=== PATIENT | male | born 1970 | race Caucasian/White ===

== ENCOUNTER 2017-03-02 01:17 | Emergency (ER) | payer SELFPAY ==
[2017-03-02] MEDS ORDERED: ONDANSETRON 4 MG/2 ML VIAL IVP ONE (02:04)
[2017-03-02] MEDS ORDERED: NS 1,000 ML IV ONE ×2 (02:04)
--- NOTE | 2017-03-02 02:04 | EDPHY ---
H & P Stated Complaint: SANCHEZ 6 GUMMIES TONIGHT SINCE 9 P.M. AND ETOH NO N,V, HPI/ROS: HPI CHIEF COMPLAINT: "I feel very strange, I think I am dying after eating edible marijuana" HISTORY OF PRESENT ILLNESS: This patient very pleasant 46-year-old male he is visiting [facility] from [facility], he presents to the emergency room with nausea, feeling lightheaded feeling very bad after consuming 6-10 mg gummy warms of edible marijuana and for alcoholic beverages. The patient tells me around 10:00 p.m. he ate 6 coming worms. Around 11:00 p.m. he started feeling lightheaded and not well. Has nausea. Denies chest pain or shortness of breath. He is paranoid. Denies chest pain. Past Medical History: Hypertension, hyperlipidemia Past Surgical History: No surgical history Social History: Occasional alcohol use, denies illicit drugs tobacco, ingested edible marijuana this evening. Family History: Noncontributory ROS REVIEW OF SYSTEMS: A comprehensive 10 point review of systems is otherwise negative aside from elements mentioned in the history of present illness. Exam Constitutional appears well nontoxic triage nursing summary reviewed, vital signs reviewed, awake/alert. Eyes normal conjunctivae and sclera, EOMI, PERRLA. HENT normal inspection, atraumatic, moist mucus membranes, no epistaxis, neck supple/ no meningismus, no raccoon eyes. Respiratory clear to auscultation bilaterally, normal breath sounds, no respiratory distress, no wheezing. Cardiovascular rate normal, regular rhythm, no murmur, no edema, distal pulses normal. Gastrointestinal soft, non-tender, no rebound, no guarding, normal bowel sounds, no distension, no pulsatile mass. Genitourinary no CVA tenderness. Musculoskeletal no midline vertebral tenderness, full range of motion, no calf swelling, no tenderness of extremities, no meningismus, good pulses, neurovascularly intact. Skin pink, warm, & dry, no rash, skin atraumatic. Neurologic awake, alert and oriented x 3, AAOx3, moves all 4 extremities equally, motor intact, sensory intact, CN II-XII intact, normal cerebellar, normal vision, normal speech. Psychiatric normal mood/affect. Heme/Lymph/Immune no lymphadenopathy. Differential Diagnosis: Includes but is not limited to in a particular order, electrolyte disturbance, dehydration, edible marijuana ingestion, alcohol ingestion. Medical Decision Making: Plan for this patient IV establishment, blood work, cardiac rn, EKG and troponin. IV fluids and Zofran. Most likely the patient feeling bad after taking 6 times the amount of normal edible marijuana and 4 alcoholic beverages. Re-evaluation: EKG interpretation by me on record in [employer] system. Impression time of EKG 2:31 a.m., this is sinus rhythm rate of 93 I do not appreciate acute ischemia on this EKG. It is noted that this EKG is reading ST elevation shaking ingesting pericarditis throughout all leads however I disagree with this reading. Patient does not have any chest pain. This does not appear to be an ischemic EKG. [id number]: Re-examination at this time this patient is sleeping he is resting comfortably denies chest pain or shortness of breath. Denies headache. Denies dizziness or nausea at this time. However he tells me he is very sleepy and feels that his body is heavy. Will re-evaluate shortly. EKG interpretation by me on record in [employer] system. Impression this is a repeat EKG time of EKG 4:06 a.m., this is sinus rhythm rate of 93 there is no acute ischemic changes appreciated. 1st degree AV block is noted 212. Source: Patient - Personal History Current Tetanus/Diphtheria Vaccine: Yes Current Tetanus Diphtheria and Acellular Pertussis (TDAP): Yes - Medical/Surgical History Hx Asthma: No Hx Chronic Respiratory Disease: No Hx Diabetes: No Hx Cardiac Disease: No Hx Renal Disease: No Hx Cirrhosis: No Hx Alcoholism: No Hx HIV/AIDS: No Hx Splenectomy or Spleen Trauma: No Other PMH: HIGH CHOLESTEROL - Social History Smoking Status: Never smoked Constitutional: Initial Vital Signs Temperature (C) 37.0 C 03/02/17 01:36 Heart Rate 104 H 03/02/17 01:36 Respiratory Rate 20 03/02/17 01:36 Blood Pressure 130/81 H 03/02/17 01:36 O2 Sat (%) 93 03/02/17 01:36 O2 Delivery Mode Room Air O2 (L/minute) 2 Allergies/Adverse Reactions: SEASONAL Allergy (Uncoded 03/02/17 01:41) Home Medications: Medication Instructions Recorded NK [No Known Home Meds] 03/02/17 Medical Decision Making - Data Points Laboratory Results: Laboratory Results 03/02/17 02:23 03/02/17 02:23 03/02/17 03/02/17 03/02/17 04:02 02:23 02:23 WBC 5.44 10^3/uL 10^3/uL (3.80-9.50) RBC 4.59 10^6/uL 10^6/uL (4.40-6.38) Hgb 13.7 g/dL g/dL (13.7-17.5) Hct 39.4 % L % (40.0-51.0) MCV 85.8 fL fL (81.5-99.8) MCH 29.8 pg pg (27.9-34.1) MCHC 34.8 g/dL g/dL (32.4-36.7) RDW 13.1 % % (11.5-15.2) Plt Count 200 10^3/uL 10^3/uL (150-400) MPV 10.0 fL fL (8.7-11.7) Neut % (Auto) 55.5 % % (39.3-74.2) Lymph % (Auto) 31.6 % % (15.0-45.0) Pepin % (Auto) 9.0 % % (4.5-13.0) Eos % (Auto) 2.8 % % (0.6-7.6) Baso % (Auto) 0.7 % % (0.3-1.7) Nucleat RBC Rel Count 0.0 % % (0.0-0.2) Absolute Neuts (auto) 3.02 10^3/uL 10^3/uL (1.70-6.50) Absolute Lymphs (auto) 1.72 10^3/uL 10^3/uL (1.00-3.00) Absolute Monos (auto) 0.49 10^3/uL 10^3/uL (0.30-0.80) Absolute Eos (auto) 0.15 10^3/uL 10^3/uL (0.03-0.40) Absolute Basos (auto) 0.04 10^3/uL 10^3/uL (0.02-0.10) Absolute Nucleated RBC 0.00 10^3/uL 10^3/uL (0-0.01) Immature Gran % 0.4 % % (0.0-1.1) Immature Gran # 0.02 10^3/uL 10^3/uL (0.00-0.10) Sodium 139 mEq/L mEq/L (134-144) Potassium 4.3 mEq/L mEq/L (3.5-5.2) Chloride 104 mEq/L mEq/L (97-110) Carbon Dioxide 23 mEq/l mEq/l (22-31) Anion Gap 12 mEq/L mEq/L (8-16) BUN 17 mg/dL mg/dL (7-23) Creatinine 0.9 mg/dL mg/dL (0.7-1.3) Estimated GFR > 60 Glucose 168 mg/dL H mg/dL (70-100) Calcium 9.1 mg/dL mg/dL (8.5-10.4) Troponin I < 0.012 ng/mL ng/mL < 0.012 ng/mL ng/mL (0-0.034) (0-0.034) Ethyl Alcohol < 10 mg/dL mg/dL (0-10) Medications Given: Discontinued Medications Sodium Chloride (Ns) 1,000 mls @ 0 mls/hr IV ONCE ONE PRN Reason: Wide Open Stop: 03/02/17 02:05 Last Admin: 03/02/17 02:37 Dose: 1,000 mls Sodium Chloride (Ns) 1,000 mls @ 0 mls/hr IV ONCE ONE PRN Reason: Wide Open Stop: 03/02/17 02:05 Last Admin: 03/02/17 02:51 Dose: 1,000 mls Ondansetron HCl (Zofran) 4 mg IVP EDNOW ONE Stop: 03/02/17 02:05 Last Admin: 03/02/17 02:38 Dose: 4 mg Departure - Departure Disposition: Home, Routine, Self-Care Clinical Impression: Marijuana intoxication Qualifiers: Complication of substance-induced condition: uncomplicated Qualified Code(s): F12.920 - Cannabis use, unspecified with intoxication, uncomplicated Condition: Good Instructions: Acute Nausea and Vomiting (ED) Additional Instructions: 1. Return emergency room if develops worsening symptoms includes vomiting, abdominal pain, chest pain or shortness of breath. Stay well-hydrated today. Referrals: NONE *PRIMARY CARE P,. [Primary Care Provider] - As per Instructions
--- NOTE | 2017-03-02 02:32 | CPEKG ---
Heart Rate: 93 RR Interval: 645 P-R Interval: 200 QRSD Interval: 90 QT Interval: 384 QTC Interval: 478 P [place]: 59 QRS [place]: 20 T Wave [place]: 28 EKG Severity - ABNORMAL ECG - EKG Impression: SINUS RHYTHM EKG Impression: ST ELEVATION SUGGESTS PERICARDITIS EKG Impression: BORDERLINE PROLONGED QT INTERVAL Electronically Signed By: Jose Guerrero 02-Mar-2017 07:31:02
[2017-03-02 02:42] LABS: % IMMATURE GRANULYOCYTES 0.4 % (0.0-1.1); ABSOLUTE IMMATURE GRANULOCYTES 0.02 10^3/uL (0.00-0.10); ADD DIFF? NO; ADD MORPH? NO; ADD SCAN? NO; ATYPICAL LYMPHOCYTE FLAG 0 (0-99); FRAGMENT RBC FLAG 0 (0-99); HEMATOCRIT 39.4 % (40.0-51.0); HEMOGLOBIN 13.7 g/dL (13.7-17.5); LEFT SHIFT FLG 0 (0-99); LIPEMIA HEMOLYSIS FLAG 90 (0-99); MEAN CELL HEMOGLOBIN 29.8 pg (27.9-34.1); MEAN CELL HEMOGLOBIN CONCENTR. 34.8 g/dL (32.4-36.7); MEAN CELL VOLUME 85.8 fL (81.5-99.8); PLATELET CLUMPS FLAG 10 (0-99); PLATELET COUNT 200 10^3/uL (150-400); RED BLOOD CELL COUNT 4.59 10^6/uL (4.40-6.38); RED CELL DISTRIBUTION WIDTH 13.1 % (11.5-15.2)
[2017-03-02 02:44] LABS: ANION GAP 12 mEq/L (8-16); CALCIUM 9.1 mg/dL (8.5-10.4); CARBON DIOXIDE 23 mEq/l (22-31); CHLORIDE 104 mEq/L (97-110); CREATININE 0.9 mg/dL (0.7-1.3); ETHANOL SERUM < 10 mg/dL (0-10); GLOMERULAR FILTRATION RATE > 60; GLUCOSE 168 mg/dL (70-100); POTASSIUM 4.3 mEq/L (3.5-5.2); SODIUM 139 mEq/L (134-144)
[2017-03-02 02:55] LABS: TROPONIN I < 0.012 ng/mL (0-0.034)
[2017-03-02 04:12] VITALS: RESP 14
--- NOTE | 2017-03-02 04:45 | CPEKG ---
Heart Rate: 93 RR Interval: 645 P-R Interval: 212 QRSD Interval: 86 QT Interval: 380 QTC Interval: 473 P [place]: 53 QRS [place]: 24 T Wave [place]: 46 EKG Severity - ABNORMAL ECG - EKG Impression: SINUS RHYTHM EKG Impression: FIRST DEGREE AV BLOCK Electronically Signed By: Jose Guerrero 02-Mar-2017 07:31:02
[2017-03-02 05:35] VITALS: BP 126/78; PULSE 87; TEMP 98.1; O2SAT 92
== END 2017-03-02 05:34 | disposition home or self-care (01) ==
DX: F12.920 Cannabis use, unspecified with intoxication, uncomplicated (principal); I10 Essential (primary) hypertension
CPT/HCPCS: 96374; G0480; J2405